=== PATIENT | female | born 1955 | race Caucasian/White ===

== ENCOUNTER → 2019-07-27 | Outpatient (CLI) | payer BC ==
--- NOTE | 2019-07-27 17:08 | Diagnostic Imaging Report ---
EXAMINATION: US Venous Upper Ext Ambrosio. TECHNIQUE: Multiple real-time grayscale images were obtained over the upper extremities in various projections, bilaterally. Additional duplex Doppler and color Doppler images were also obtained. HISTORY: Swelling COMPARISON: None available. FINDINGS: The left jugular vein, subclavian vein, cephalic vein and axillary vein are patent with normal israel scale and doppler appearance. The veins of the distal arm are patent. There is normal respiratory variation and augmentation. The right jugular vein, subclavian vein, cephalic vein and axillary vein are patent with normal israel scale and doppler appearance. The veins of the distal arm are patent. There is normal respiratory variation and augmentation. IMPRESSION: 1. No DVT of either upper extremity. Dictated by: Dictated on workstation # [id number]
== END ==
LOC: RAD 15:07
PROVIDERS: ATTEND Nurse Practitioner Family
DX: I87.1 Compression of vein (principal); G64 Other disorders of peripheral nervous system
CPT/HCPCS: 93970

== ENCOUNTER → 2021-10-13 | Outpatient (CLI) | payer MEDICARE, OTHER ==
[2021-10-13 14:05] VITALS: BP 110/72
== END ==
LOC: CARD 14:00
PROVIDERS: ATTEND Nurse Practitioner Family
DX: Z13.6 Encounter for screening for cardiovascular disorders (principal)
CPT/HCPCS: 93351